=== PATIENT | female | born 1975 | race Caucasian/White ===

== ENCOUNTER 2024-10-08 15:32 | Outpatient (CLI) | payer OTHER | END 2024-10-08 15:33 | disposition home or self-care (01) | LOC: BICCT 15:32 | PROVIDERS: ATTEND Internal Medicine Cardiovascular Disease | DX: R07.9 Chest pain, unspecified (principal); K76.9 Liver disease, unspecified; I25.10 Atherosclerotic heart disease of native coronary artery without angina pectoris | CPT/HCPCS: 75571 ==